=== PATIENT | male | born 1960 | race Hispanic/Latino ===

== ENCOUNTER 2016-08-25 06:00 | Day surgery (SDC) | payer MEDICARE, OTHER ==
--- NOTE | 2016-08-17 15:40 | Admit Criteria Form ---
Admission Criteria Documentation: AMBULATORY SURGERY EXCEPTION CRITERIA Ambulatory Surgery Exception Criteria ( Place 'X' for any and all applicable criteria): Surgery or procedure performed on ambulatory basis may require inpatient stay for[A] ANY ONE of the following(1)(2)(3)(4)(5)(6)(7)(8)(9): [X] I. A preoperative situation, condition, or finding that warrants inpatient stay as indicated by ANY ONE of the following: [] a) Inpatient care needed because of severity of a disease or condition rather than the surgery (eg, severe cardiac or respiratory disease, severe infection) (15) (16 ) (17) (18) [] b) Emergent procedure (eg, angioplasty for acute ischemia)(19) [] c) Complex surgical approach or situation as indicated by ANY ONE of the following(3): [] i) Open approach needed instead of usual endoscopic, transcatheter, or other less invasive procedure [] ii) Difficult approach because of previous operation [] iii) Airway monitoring required after open neck procedures(20)(21) [] iv) Large mass requiring unusually extensive dissection [] v) Additional complicating feature requiring inpatient care (eg, drain management)(22(23): [X] d) Major surgery in a pt with high anesthetic risk as indicated by ANY ONE of the following (2)(3)(5)(7)(8): [X] i) ASA risk class III or higher (severe systemic disease impairing function) [D] [] ii) Advanced age (eg, older than 85 years)(14)(24) [] iii) Symptomatic heart failure(25) [] iv) Symptomatic asthma or COPD(8)(21) [] v) Morbid obesity with hemodynamic or respiratory problems(20)( 21)(26)(27) [] vi) Obstructive sleep apnea(20)(21) [] vii) Former premature infants who are younger than 60 weeks [] viii) High risk for severe postoperative abnormalities (eg, severe postoperative hypocalcemia after parathyroidectomy for severe hyperparathyroidism)(27)( 28) [] ix) Unstable angina(25) [] e) Drug-related risk requiring inpatient stay as indicated by ANY ONE of the following(5)(10)(14)(32)(33) [] i) Procedure requires discontinuing drugs or other therapy (eg , antiarrhythmic medication, antiseizure medication), which necessitates inpatient observation or treatment.(18)(31) [] ii) Major surgery and high risk drug use as indicated by ANY ONE of the following: [] 1) Active abuse of cocaine or similar drug [] 2) Monoamine oxidase inhibitor use [] 3) Other drug identified as posing risk [] f) Inadequate outpatient care situation as indicated by ANY ONE of the following(5)(10)(14)(32)(33) [] i) Patient lives remote from medical facility and procedure has urgent complication potential, and temporary nearby residence cannot be arranged [] ii) Patient will have postprocedure incapacitation and inadequate assistance at home, or alternative level of care cannot be arranged. [] iii) Patient will have long general anesthesia or procedure side effect resolution time, and competent person to stay with patient on first postoperative night at home or alternative level of care cannot be arranged. []iv) Other inadequate outpatient situation that cannot be handled by other means [] II. A perioperative event, condition, or finding that warrants inpatient stay as indicated by ANY ONE of the following (1)(2)(3): [] a) Inadequate physiologic recovery: cardiovascular, respiratory, or hemodynamic status not normal or near preoperative baseline(18) [] b) Hemodynamic instability [] c) Patient not alert with near normal or baseline mental status [] d) Temperature not normal or as expected and not appropriate for outpatient treatment of condition [] e) Ambulatory or appropriate activity level status not yet achieved post procedure [E](34)(35)(36) [] f) Operative site not appropriate (eg, unexpected or excessive drainage or bleeding) [] g) Postoperative effects not resolved or adequately managed (eg, significant pain or vomiting not appropriate for outpatient or next level of care)(10)(12) [] h) Complicating features requiring inpatient care as indicated by ANY ONE of the following(37): [] i) Severe complications of procedure (eg, bowel injury, airway compromise, vascular injury,severe hemorrhage) [] ii) Extensive (eg, dissection far beyond usual scope of procedure ) or prolonged (eg, 120 minutes beyond usual) surgery needed requiring inpatient postoperative care [] iii) Conversion to an open or complex procedure that requires inpatient care (eg, open vs laparoscopic cholecystectomy, abdominal vs vaginal hysterectomy)(38) [] iv) Comorbid condition or test result identified during or post procedure that requires inpatient care (7) [] v) Malignant hyperthermia(30) [] vi) Other complicating feature requiring inpatient care(22)(23) Inpatient stay may be needed until ALL of the following are present (1)(2)(3)(4) (5)(6)(10)(14)(33)(40): []a) Physiologic recovery: cardiovascular, respiratory, and hemodynamic status normal or near preoperative baseline []b) Hemodynamic stability []c) Patient alert, with near normal or baseline mental status []d) Temperature appropriate: patient afebrile or temperature appropriate for outpt treatment of condition []e) Activity level appropriate: ambulatory or appropriate activity level post procedure []f) Operative site appropriate as indicated by ALL of the following: []i) Site dry or with expected drainage []ii) Any blood noted is as expected for procedure. []g) Postoperative effects resolved or managed as indicated by ALL of the following: []i) Pain management appropriate for outpatient (or next level of) care(10) []ii) Minimal nausea and vomiting: if present, successfully treated with oral medication(12) []iii) Headache, dizziness, or drowsiness (if present) are mild. []h) Voiding status acceptable as indicated by ANY ONE of the following: []i) Voiding spontaneously []ii) No voiding but instructions given for follow-up in 6 to 8 hours []iii) Urinary catheter in place, and instructions given for follow-up []i) Complicating features requiring inpatient care manageable at a lower level of care(37) []j) Comorbid conditions manageable at a lower level of care(37) The original [employer] content created by [employer] has been revised. The portions of the content which have been revised are identified through the use of italic text or in bold, and [employer] has neither reviewed nor approved the modified material. All other unmodified content is copyright [employer]. Please see references footnoted in the original [employer] edition 2016
[~2016-08-25 06:00] MED LIST: ANCEF/STERILE WATER 2 GM/20 ML 2 GM/20 ML SYRINGE IV NR; NACL 0.9% 1000 ML 1,000 ML IV SCH
--- NOTE | 2016-08-25 07:04 | Anesthesia Day of Surgery ---
Anesthesia Day of Surgery - Day of Surgery Patient Examined: Yes Patient H&P Reviewed: Yes Patient is NPO: Yes
--- NOTE | 2016-08-25 07:06 | Anesthesia Consultation ---
Anesthesia Consult and Med Hx Date of service: 08/25/16 - Airway Anesthetic Teeth Evaluation: Poor (several remaining teeth only-blackened/ broken ??loose/risks explained) ROM Head & Neck: Adequate Mental/Hyoid Distance: Adequate Mallampati Class: Class II Intubation Access Assessment: Probably Good - Pulmonary Exam CTA: Yes (blbs clear) - Cardiac Exam Cardiac Exam: RRR - Pre-Operative Health Status ASA Pre-Surgery Classification: ASA4 Proposed Anesthetic Plan: General - Pulmonary Hx Smoking: Yes COPD: Yes - Cardiovascular System Hx Hypertension: Yes (10YRS) - Central Nervous System CVA: Yes (2009) - Gastrointestinal Hx Gastroesophageal Reflux Disease: Yes - Endocrine Hx End Stage Renal Disease: Yes (on HD) Hx Non-Insulin Dependent Diabetes: Yes - Hematic Hx Anemia: Yes
[2016-08-25] MEDS ORDERED: DIPRIVAN 10 MG/ML IV ONE ×2 (07:16→08:18)
[2016-08-25] MEDS ORDERED: NACL ONE (07:17)
[2016-08-25] MEDS ORDERED: XYLOCAINE MPF 2% ONE (07:17)
[2016-08-25] MEDS ORDERED: PAPAVERINE ONE (07:17)
[2016-08-25] MEDS ORDERED: PROTAMINE SULFATE ONE (07:17)
[2016-08-25] MEDS ORDERED: MARCAINE 0.5% 30 ML INFILTRATI ONE (07:17)
[2016-08-25] MEDS ORDERED: RIFADIN ONE (07:18)
[2016-08-25] MEDS ORDERED: XYLOCAINE 1%/ EPI 1:100,000 INFILTRATI ONE (07:18)
[2016-08-25] MEDS ORDERED: HEPARIN 10,000 UNITS/10 ML ONE (07:18)
[2016-08-25] MEDS ORDERED: GELFOAM TP ONE (07:19)
[2016-08-25] MEDS ORDERED: NACL 0.9% 500 ML 500 ML ONE (07:19)
[2016-08-25] MEDS ORDERED: MARCAINE 0.5% INFILTRATI ONE ×2 (07:20→08:48)
[2016-08-25] MEDS ORDERED: DILAUDID IV PRN (08:00)
[2016-08-25] MEDS ORDERED: PEPCID IV NR (08:00)
[2016-08-25] MEDS ORDERED: ZOFRAN IV PRN (08:00)
[2016-08-25] MEDS ORDERED: SUBLIMAZE IV PRN (08:00)
[2016-08-25] MEDS ORDERED: NACL 0.9% IR ONE (08:48)
[2016-08-25] MEDS ORDERED: HEPARIN 10,000 UNITS/10 ML IV ONE (08:48)
[2016-08-25] MEDS ORDERED: ZOFRAN ONE (09:00)
[2016-08-25] MEDS ORDERED: NEO SYNEPHRINE ONE (09:15)
[2016-08-25] MEDS ORDERED: NACL 0.9% 100 ML ONE (09:18)
[2016-08-25] MEDS ORDERED: ZEMURON IV ONE (09:21)
[2016-08-25] MEDS ORDERED: ROBINUL ONE (09:22)
[2016-08-25] MEDS ORDERED: NEOSTIGMINE ONE (09:22)
--- NOTE | 2016-08-25 09:37 | Short Stay Summary ---
Short Stay Documentation Date of service: 08/25/16 Narrative H&P: See H&P - History H&P: obtained from office - Allergies and Medications Current Medications: Allergies No Known Allergies Allergy (Unverified 08/18/16 14:24) Home Medications Medication Instructions Recorded Confirmed Last Taken Type Allopurinol [Zyloprim] 100 mg PO QDAY 08/18/16 08/25/16 08/22/16 09:00 History Lisinopril [Zestril] 20 mg PO QDAY 08/18/16 08/25/16 08/25/16 05:00 History Metoprolol [Lopressor] 25 mg PO QDAY 08/18/16 08/25/16 08/25/16 05:00 History Pantoprazole [Protonix] 40 mg PO QDAY 08/18/16 08/18/16 Unknown History Sertraline [Zoloft] 50 mg PO QDAY 08/18/16 08/18/16 Unknown History glipiZIDE [glipiZIDE XL] 5 mg PO QDAY 08/18/16 08/25/16 08/24/16 09:00 History Active Medications Famotidine (Pepcid) 20 mg IV PREOP NR Stop: 08/25/16 20:00 Last Admin: 08/25/16 07:44 Dose: 20 mg Fentanyl (Sublimaze) 50 mcg IV Q5MIN PRN PRN Reason: Pain , Severe (7-10) Stop: 08/25/16 13:00 Hydromorphone HCl (Dilaudid) 0.25 mg IV Q10MIN PRN PRN Reason: Pain, Moderate (4-6) Stop: 08/25/16 14:00 Cefazolin Sodium (Ancef/Sterile Water 2 Gm/20 Ml) 2 gm in 20 mls @ 80 mls/hr IV PREOP NR PRN Reason: Protocol Stop: 08/25/16 23:59 Sodium Chloride (Nacl 0.9% 1000 Ml) 1,000 mls @ 42 mls/hr IV DIRECT BO Last Admin: 08/25/16 07:15 Dose: 42 mls/hr Ondansetron HCl (Zofran) 4 mg IV ONCE PRN PRN Reason: Nausea And Vomiting Stop: 08/25/16 14:00 - Brief post op/procedure progress note Date of procedure: 08/25/16 Pre-op diagnosis: End-Stage Renal Disease Post-op diagnosis: same Procedure: Creation of left brachiocephalic arteriovenous fistula Anesthesia: CHRISTOFER Surgeon: TIFFANIE CASTANON Estimated blood loss: minimal Pathology: none Condition: stable - Disposition Condition at discharge: Good Disposition: DISCHARGED TO HOME OR SELFCARE Short Stay Discharge Plan Activity: other (no heavy lifting with left arm) Wound: open to air, keep clean and dry, other (okay to wash the wound with soap and water but do not soak in water) Follow up with: TIFFANIE CASTANON MD [Staff Physician] - 14 Days Prescriptions: HYDROcodone/APAP 7.5-325 [[place] 7.5/325] 1 each PO Q6HR PRN #50 tablet PRN Reason: Pain
--- NOTE | 2016-08-25 09:40 | Operative Report ---
Operative Report Operative Report: Date of procedure: 08/25/2016 Pre-operative diagnosis: End-Stage Renal Disease Post-operative diagnosis: End-Stage Renal Disease Procedure(s): Creation of Left Brachial Artery to Cephalic Vein Arteriovenous Fistula Surgeon: Jai Rios MD Field Care Advocate: None Anesthesia: Gen. endotracheal anesthesia EBL: Minimal Counts: Correct Complications: None Condition: Stable Findings: Successful creation of left brachiocephalic arteriovenous fistula with excellent thrill and palpable radial pulse at the end of the case. Specimen: None Indications: The patient is a 56-year-old male with a history of end-stage renal disease currently on hemodialysis through a permacath. He is in need of long-term access and found to be a suitable candidate for creation of a fistula. He was given the risks, benefits, and alternative procedures and consented to procedure. Description of Procedure: The patient was brought to the operating room and laid in supine position after general endotracheal anesthesia was administered the patient was prepped and draped in normal sterile fashion. After anesthetizing the skin a transverse incision was created just below the antecubital crease. Dissection was carried down to the the cephalic vein using sharp dissection. The vein was dissected out both proximally and distally and suture ligated and divided distally. I then ran a 3 Steve proximally in the vein, to ensure patency of the vein. Then flushed the vein with heparinized saline and flow was controlled with a bulldog clamp. I then dissected out the brachial artery through this incision circumferentially both proximal and distal and controlled the artery with vessel loops. I then placed the vessel loops on tension controlling the flow through the artery and created an arteriotomy using an 11 blade and [place] scissors. I created an end to side anastomosis between the cephalic vein and brachial artery using a 6-0 Prolene in running fashion. Prior to completing the anastomosis I flushed the artery both proximally and distally and then advanced a 3 Steve proximally to break the spasm in the artery. I then completed the anastomosis and removed all vessel loops allowing flow into the fistula which had an excellent thrill. I achieved hemostasis with a combination of direct pressure and electrocautery. Once hemostasis was achieved I anesthetized the wound with Marcaine. I then closed the wound in 2 layers and 3-0 Vicryl in a running fashion to close the deep dermal layer and 4- 0 Monocryl in a running fashion in the subcuticular layer. I dressed the wound with Surgicel. The patient tolerated the procedure well, all sponge needle and instrument counts were correct. The patient was taken to recovery in stable condition.
--- NOTE | 2016-08-25 10:01 | Post Anesthesia Evaluation ---
- Post Anesthesia Evaluation Patient Participated: Yes Airway Patent: Yes Stable Respiratory Function: Yes Nausea/Vomiting: No Temp > 96.8F: Yes Pain Manageable: Yes Adequeate Hydration: Yes Anesthesia Complications: No Block Receding Appropriately: Not Applicable Patient on Ventilator: No
[2016-08-25] MEDS ORDERED: NORCO 7.5/325 PO PRN (11:00)
[2016-08-25 11:50] VITALS: BP 157/86
== END 2016-08-25 06:01 | disposition home or self-care (01) ==
LOC: OR 06:00
PROVIDERS: ATTEND Surgery Vascular Surgery
DX: E11.22 Type 2 diabetes mellitus with diabetic chronic kidney disease (principal); I12.0 Hypertensive chronic kidney disease with stage 5 chronic kidney disease or end stage renal disease; N18.6 End stage renal disease; J44.9 Chronic obstructive pulmonary disease, unspecified; K21.9 Gastro-esophageal reflux disease without esophagitis; D64.9 Anemia, unspecified; Z87.891 Personal history of nicotine dependence; Z86.73 Personal history of transient ischemic attack (TIA), and cerebral infarction without residual deficits; Z99.2 Dependence on renal dialysis
CPT/HCPCS: 36415; 36818; 82962; 84132; A4649; J0690; J1170; J1644; J2370; J2704; J2710; J7030; J7040; J2405; J2440; J2720; J3490